=== PATIENT | male | born 1945 | race Caucasian/White ===

== ENCOUNTER 2018-11-27 09:28 | Outpatient (CLI) | payer MEDICARE, SELFPAY | END 2018-11-27 09:48 | PROVIDERS: PCP General Practice; Visit Provider Internal Medicine Hematology & Oncology | DX: D64.9 Anemia, unspecified (principal) | CPT/HCPCS: 36415; 86850; 86900; 86901; 86920; 82728; 83540; 83550; 85025 ==

== ENCOUNTER 2018-11-30 00:59 | Outpatient (RCR) | payer MEDICARE, SELFPAY ==
[2018-11-27] VITALS (9 sets, daily range): BP systolic 130–149; BP diastolic 59–71; PULSE 60–72; RESP 17–18; TEMP 36.3–36.5; O2SAT 96–99
[2018-11-27 10:03] LABS: Abs Immature Grans 0.01 k/cumm (0.0-0.09); Absolute Basophil Count 0.03 k/cumm (0.0-0.2); Absolute Eosinophil Count 0.13 k/cumm (0.0-0.7); Absolute Lymphocyte Count 0.63 k/cumm (1.2-3.4); Absolute Monocyte Count 0.48 k/cumm (0.11-0.7); Absolute Neutrophil Count 3.36 k/cumm (1.2-6.7); Basophils % 0.6; Eosinophils % 2.8; HCT 26.2 % (40.0-50.0); HGB 8.1 g/dL (13.5-17.5); Immature Grans % 0.2; Lymphocytes % 13.6; Mean Corp. HGB Concentration 30.9 g/dL (32.0-36.0); Mean Corpuscular Hemoglobin 28.4 pg (27.0-33.0); Mean Corpuscular Volume 91.9 fL (80-95); Mean Platelet Volume 9.1 fL (8.0-11.0); Monocytes % 10.3; Neutrophils % 72.5; Platelet Count 184 x1000/uL (130-400); RBC 2.85 m/cumm (4.50-6.00); RBC Distribution Width 13.4 % (11.8-14.1); White Blood Cell Count 4.64 k/cumm (4.4-10.8)
[2018-11-27 10:28] LABS: Diff Comment RBC Morph Reviewed
[2018-11-27 10:29] LABS: Basophilic Stippling Present; Hypochromasia 1+; Polychromasia Present
[2018-11-27 11:03] LABS: Iron 31 ug/dL (50-175); Total Iron Binding Capacity 331 ug/dL (250-450); Transferrin Sat 9 % (20-55)
[2018-11-27 11:15] LABS: Ferritin 20 ng/mL (8-388)
[2018-11-27] MEDS: Normal Saline Flush 10 ML SYR IVP (12:00)
[2018-11-30 11:28] LABS: Abs Immature Grans 0.01 k/cumm (0.0-0.09); Absolute Basophil Count 0.02 k/cumm (0.0-0.2); Absolute Eosinophil Count 0.15 k/cumm (0.0-0.7); Absolute Monocyte Count 0.52 k/cumm (0.11-0.7); Absolute Neutrophil Count 3.86 k/cumm (1.2-6.7); Basophils % 0.4; HCT 34.5 % (40.0-50.0); HGB 11.4 g/dL (13.5-17.5); Immature Grans % 0.2; Lymphocytes % 9.9; Mean Corpuscular Hemoglobin 29.2 pg (27.0-33.0); Mean Corpuscular Volume 88.5 fL (80-95); Mean Platelet Volume 9.4 fL (8.0-11.0); Monocytes % 10.3; Neutrophils % 76.2; Platelet Count 155 x1000/uL (130-400); RBC Distribution Width 13.4 % (11.8-14.1); White Blood Cell Count 5.06 k/cumm (4.4-10.8)
== END 2018-12-02 23:59 | disposition home or self-care (01) ==
LOC: INF 00:59
PROVIDERS: PCP General Practice; Visit Provider Internal Medicine Hematology & Oncology
DX: D64.9 Anemia, unspecified (principal)
CPT/HCPCS: 36415; 36430; 86850; 86900; 86901; 86920; 82728; 83540; 83550; 85025; P9016

== ENCOUNTER 2018-12-25 03:08 | Outpatient (RCR) | payer MEDICARE, SELFPAY ==
[2018-12-04 13:37] LABS: Abs Immature Grans 0.02 k/cumm (0.0-0.09); Absolute Basophil Count 0.04 k/cumm (0.0-0.2); Absolute Eosinophil Count 0.06 k/cumm (0.0-0.7); Absolute Lymphocyte Count 0.65 k/cumm (1.2-3.4); Absolute Monocyte Count 0.81 k/cumm (0.11-0.7); Absolute Neutrophil Count 7.17 k/cumm (1.2-6.7); Basophils % 0.5; Eosinophils % 0.7; HCT 36.2 % (40.0-50.0); Immature Grans % 0.2; Lymphocytes % 7.4; Mean Corp. HGB Concentration 33.1 g/dL (32.0-36.0); Mean Corpuscular Hemoglobin 29.3 pg (27.0-33.0); Mean Corpuscular Volume 88.5 fL (80-95); Mean Platelet Volume 9.3 fL (8.0-11.0); Monocytes % 9.3; Neutrophils % 81.9; Platelet Count 188 x1000/uL (130-400); RBC 4.09 m/cumm (4.50-6.00); RBC Distribution Width 13.4 % (11.8-14.1); White Blood Cell Count 8.75 k/cumm (4.4-10.8)
[2018-12-04 15:09] LABS: ALT 55 U/L (12-78); AST 61 U/L (15-37); Albumin 3.1 g/dL (3.4-5.0); Alkaline Phosphatase 51 U/L (46-116); Anion Gap 8.3 mmol/L (3-11); BUN 19 mg/dL (7-18); Bilirubin, Total 0.7 mg/dL (0.2-1.0); CO2 30.7 mmol/L (21.0-32.0); CREATININE 1.51 mg/dL (0.70-1.30); Calcium 8.7 mg/dL (8.5-10.1); Chloride 99 mmol/L (98-107); Estimated GFR 45.52 (mL/min/1.73m2); Glucose 122 mg/dL (70-100); Potassium 3.3 mmol/L (3.5-5.1); Sodium 138 mmol/L (136-145); Total Protein 6.9 g/dL (6.4-8.2)
[2018-12-09 09:32] LABS: Abs Immature Grans 0.05 k/cumm (0.0-0.09); Absolute Basophil Count 0.03 k/cumm (0.0-0.2); Absolute Eosinophil Count 0.21 k/cumm (0.0-0.7); Absolute Lymphocyte Count 0.69 k/cumm (1.2-3.4); Absolute Monocyte Count 0.89 k/cumm (0.11-0.7); Absolute Neutrophil Count 6.01 k/cumm (1.2-6.7); Basophils % 0.4; Eosinophils % 2.7; HCT 37.1 % (40.0-50.0); HGB 12.2 g/dL (13.5-17.5); Immature Grans % 0.6; Lymphocytes % 8.8; Mean Corp. HGB Concentration 32.9 g/dL (32.0-36.0); Mean Corpuscular Hemoglobin 28.7 pg (27.0-33.0); Mean Corpuscular Volume 87.3 fL (80-95); Mean Platelet Volume 9.3 fL (8.0-11.0); Monocytes % 11.3; Neutrophils % 76.2; Platelet Count 299 x1000/uL (130-400); RBC 4.25 m/cumm (4.50-6.00); RBC Distribution Width 13.4 % (11.8-14.1); White Blood Cell Count 7.88 k/cumm (4.4-10.8)
[2018-12-09 10:00] LABS: Iron 27 ug/dL (50-175); Total Iron Binding Capacity 345 ug/dL (250-450); Transferrin Sat 8 % (20-55)
[2018-12-09 10:08] LABS: ALT 63 U/L (12-78); AST 54 U/L (15-37); Albumin 3.1 g/dL (3.4-5.0); Alkaline Phosphatase 64 U/L (46-116); Anion Gap 9.3 mmol/L (3-11); BUN 13 mg/dL (7-18); Bilirubin, Total 0.7 mg/dL (0.2-1.0); CO2 31.7 mmol/L (21.0-32.0); CREATININE 1.63 mg/dL (0.70-1.30); Calcium 8.8 mg/dL (8.5-10.1); Chloride 97 mmol/L (98-107); Estimated GFR 41.68 (mL/min/1.73m2); Ferritin 21 ng/mL (8-388); Glucose 123 mg/dL (70-100); Sodium 138 mmol/L (136-145); Total Protein 7.3 g/dL (6.4-8.2)
[2018-12-09 10:14] LABS: Potassium 2.8 mmol/L (3.5-5.1)
[2018-12-11 11:14] LABS: Chromogranin A 2286 ng/mL (<93)
[2018-12-15 12:47] LABS: Abs Immature Grans 0.07 k/cumm (0.0-0.09); Absolute Basophil Count 0.05 k/cumm (0.0-0.2); Absolute Lymphocyte Count 0.73 k/cumm (1.2-3.4); Absolute Monocyte Count 0.69 k/cumm (0.11-0.7); Basophils % 0.6; Eosinophils % 2.5; HCT 36.9 % (40.0-50.0); HGB 11.8 g/dL (13.5-17.5); Immature Grans % 0.9; Mean Corpuscular Hemoglobin 28.8 pg (27.0-33.0); Mean Platelet Volume 9.1 fL (8.0-11.0); Monocytes % 8.5; Neutrophils % 78.5; Platelet Count 257 x1000/uL (130-400); RBC Distribution Width 14.9 % (11.8-14.1); White Blood Cell Count 8.14 k/cumm (4.4-10.8)
[2018-12-15 14:56] LABS: ALT 53 U/L (12-78); AST 50 U/L (15-37); Albumin 3.1 g/dL (3.4-5.0); Alkaline Phosphatase 62 U/L (46-116); BUN 13 mg/dL (7-18); Bilirubin, Total 0.5 mg/dL (0.2-1.0); CREATININE 1.81 mg/dL (0.70-1.30); Calcium 8.7 mg/dL (8.5-10.1); Chloride 102 mmol/L (98-107); Estimated GFR 36.93 (mL/min/1.73m2); Glucose 129 mg/dL (70-100); Potassium 4.1 mmol/L (3.5-5.1); Sodium 138 mmol/L (136-145); Total Protein 6.5 g/dL (6.4-8.2)
[2018-12-25 08:29] LABS: Abs Immature Grans 0.02 k/cumm (0.0-0.09); Absolute Basophil Count 0.04 k/cumm (0.0-0.2); Absolute Eosinophil Count 0.26 k/cumm (0.0-0.7); Absolute Lymphocyte Count 0.71 k/cumm (1.2-3.4); Absolute Monocyte Count 0.59 k/cumm (0.11-0.7); Absolute Neutrophil Count 4.77 k/cumm (1.2-6.7); Basophils % 0.6; Eosinophils % 4.1; HCT 39.4 % (40.0-50.0); HGB 12.6 g/dL (13.5-17.5); Immature Grans % 0.3; Lymphocytes % 11.1; Mean Corpuscular Hemoglobin 29.2 pg (27.0-33.0); Mean Corpuscular Volume 91.4 fL (80-95); Mean Platelet Volume 9.2 fL (8.0-11.0); Monocytes % 9.2; Neutrophils % 74.7; Platelet Count 186 x1000/uL (130-400); RBC 4.31 m/cumm (4.50-6.00); RBC Distribution Width 17.4 % (11.8-14.1); White Blood Cell Count 6.39 k/cumm (4.4-10.8)
[2018-12-25 08:44] LABS: Iron 81 ug/dL (50-175); Total Iron Binding Capacity 288 ug/dL (250-450); Transferrin Sat 28 % (20-55)
[2018-12-25 08:56] LABS: ALT 41 U/L (12-78); AST 41 U/L (15-37); Albumin 3.1 g/dL (3.4-5.0); Alkaline Phosphatase 66 U/L (46-116); Anion Gap 11.1 mmol/L (3-11); BUN 16 mg/dL (7-18); Bilirubin, Total 0.7 mg/dL (0.2-1.0); CO2 26.9 mmol/L (21.0-32.0); CREATININE 1.45 mg/dL (0.70-1.30); Calcium 8.7 mg/dL (8.5-10.1); Chloride 100 mmol/L (98-107); Estimated GFR 47.71 (mL/min/1.73m2); Ferritin 205 ng/mL (8-388); Glucose 130 mg/dL (70-100); Potassium 3.6 mmol/L (3.5-5.1); Sodium 138 mmol/L (136-145); Total Protein 8.2 g/dL (6.4-8.2)
[2018-12-28 11:38] LABS: Chromogranin A 2372 ng/mL (<93)
== END 2019-01-02 23:59 | disposition home or self-care (01) ==
LOC: INF 03:08
PROVIDERS: PCP General Practice; Visit Provider Internal Medicine Hematology & Oncology
DX: C7A.8 Other malignant neuroendocrine tumors (principal); D64.9 Anemia, unspecified; K92.2 Gastrointestinal hemorrhage, unspecified
CPT/HCPCS: 36415; 80053; 82728; 83540; 83550; 85025; 86316

== ENCOUNTER 2019-01-29 02:14 | Outpatient (RCR) | payer MEDICARE, SELFPAY ==
[2019-01-15 12:52] LABS: Abs Immature Grans 0.02 k/cumm (0.0-0.09); Absolute Basophil Count 0.03 k/cumm (0.0-0.2); Absolute Eosinophil Count 0.27 k/cumm (0.0-0.7); Absolute Lymphocyte Count 0.61 k/cumm (1.2-3.4); Absolute Neutrophil Count 4.65 k/cumm (1.2-6.7); Basophils % 0.5; Eosinophils % 4.4; HCT 39.3 % (40.0-50.0); HGB 12.7 g/dL (13.5-17.5); Immature Grans % 0.3; Lymphocytes % 9.9; Mean Corp. HGB Concentration 32.3 g/dL (32.0-36.0); Mean Corpuscular Hemoglobin 30.3 pg (27.0-33.0); Mean Corpuscular Volume 93.8 fL (80-95); Mean Platelet Volume 8.8 fL (8.0-11.0); Monocytes % 9.7; Neutrophils % 75.2; Platelet Count 188 x1000/uL (130-400); RBC 4.19 m/cumm (4.50-6.00); RBC Distribution Width 19.1 % (11.8-14.1); White Blood Cell Count 6.18 k/cumm (4.4-10.8)
[2019-01-15 13:04] LABS: Anisocytosis 2+; Diff Comment RBC Morph Reviewed; Polychromasia Present
[2019-01-15 13:09] LABS: ALT 51 U/L (16-63); AST 53 U/L (15-37); Albumin 3.2 g/dL (3.4-5.0); Alkaline Phosphatase 65 U/L (46-116); Anion Gap 6.4 mmol/L (3-11); BUN 16 mg/dL (7-18); Bilirubin, Total 0.6 mg/dL (0.2-1.0); CO2 31.6 mmol/L (21.0-32.0); CREATININE 1.32 mg/dL (0.70-1.30); Calcium 8.8 mg/dL (8.5-10.1); Chloride 101 mmol/L (98-107); Estimated GFR 53.17 (mL/min/1.73m2); Glucose 112 mg/dL (70-100); Potassium 3.7 mmol/L (3.5-5.1); Sodium 139 mmol/L (136-145); Total Protein 7.2 g/dL (6.4-8.2)
[2019-01-29 09:13] LABS: Abs Immature Grans 0.01 k/cumm (0.0-0.09); Absolute Basophil Count 0.01 k/cumm (0.0-0.2); Absolute Eosinophil Count 0.26 k/cumm (0.0-0.7); Absolute Lymphocyte Count 0.55 k/cumm (1.2-3.4); Absolute Monocyte Count 0.64 k/cumm (0.11-0.7); Absolute Neutrophil Count 3.27 k/cumm (1.2-6.7); Basophils % 0.2; Eosinophils % 5.5; HCT 39.8 % (40.0-50.0); HGB 13.3 g/dL (13.5-17.5); Immature Grans % 0.2; Lymphocytes % 11.6; Mean Corp. HGB Concentration 33.4 g/dL (32.0-36.0); Mean Corpuscular Hemoglobin 31.7 pg (27.0-33.0); Monocytes % 13.5; Platelet Count 152 x1000/uL (130-400); RBC 4.19 m/cumm (4.50-6.00); RBC Distribution Width 21.5 % (11.8-14.1); White Blood Cell Count 4.74 k/cumm (4.4-10.8)
[2019-01-29 09:21] LABS: Diff Comment RBC Morph Reviewed
[2019-01-29 09:22] LABS: Anisocytosis 2+; Polychromasia Present
[2019-01-29 09:24] LABS: ALT 36 U/L (16-63); AST 36 U/L (15-37); Albumin 3.3 g/dL (3.4-5.0); Alkaline Phosphatase 71 U/L (46-116); Anion Gap 9.1 mmol/L (3-11); BUN 16 mg/dL (7-18); Bilirubin, Total 0.9 mg/dL (0.2-1.0); CO2 26.9 mmol/L (21.0-32.0); CREATININE 1.42 mg/dL (0.70-1.30); Calcium 8.7 mg/dL (8.5-10.1); Chloride 102 mmol/L (98-107); Estimated GFR 48.87 (mL/min/1.73m2); Glucose 123 mg/dL (70-100); Potassium 3.6 mmol/L (3.5-5.1); Sodium 138 mmol/L (136-145); Total Protein 7.2 g/dL (6.4-8.2)
[2019-02-01 11:14] LABS: Chromogranin A 1698 ng/mL (<93)
== END 2019-02-01 23:59 | disposition home or self-care (01) ==
LOC: INF 02:14
PROVIDERS: PCP General Practice; Visit Provider Internal Medicine Hematology & Oncology
DX: C7A.8 Other malignant neuroendocrine tumors (principal)
CPT/HCPCS: 36415; 80053; 85025; 86316

== ENCOUNTER 2019-02-26 02:28 | Outpatient (RCR) | payer MEDICARE, SELFPAY ==
[2019-02-26 09:57] LABS: Abs Immature Grans 0.01 k/cumm (0.0-0.09); Absolute Basophil Count 0.01 k/cumm (0.0-0.2); Absolute Eosinophil Count 0.11 k/cumm (0.0-0.7); Absolute Lymphocyte Count 0.56 k/cumm (1.2-3.4); Absolute Monocyte Count 0.57 k/cumm (0.11-0.7); Basophils % 0.3; Eosinophils % 3.4; HCT 37.2 % (40.0-50.0); HGB 12.7 g/dL (13.5-17.5); Immature Grans % 0.3; Lymphocytes % 17.2; Mean Corp. HGB Concentration 34.1 g/dL (32.0-36.0); Mean Corpuscular Volume 99.7 fL (80-95); Mean Platelet Volume 9.1 fL (8.0-11.0); Monocytes % 17.5; Neutrophils % 61.3; Platelet Count 143 x1000/uL (130-400); RBC 3.73 m/cumm (4.50-6.00); RBC Distribution Width 22.4 % (11.8-14.1); White Blood Cell Count 3.26 k/cumm (4.4-10.8)
[2019-02-26 10:16] LABS: ALT 33 U/L (16-63); AST 30 U/L (15-37); Albumin 3.4 g/dL (3.4-5.0); Alkaline Phosphatase 67 U/L (46-116); Anion Gap 8.5 mmol/L (3-11); BUN 18 mg/dL (7-18); Bilirubin, Total 0.8 mg/dL (0.2-1.0); CO2 28.5 mmol/L (21.0-32.0); CREATININE 1.27 mg/dL (0.70-1.30); Calcium 8.9 mg/dL (8.5-10.1); Chloride 103 mmol/L (98-107); Estimated GFR 55.59 (mL/min/1.73m2); Glucose 102 mg/dL (70-100); Potassium 3.4 mmol/L (3.5-5.1); Sodium 140 mmol/L (136-145); Total Protein 7.1 g/dL (6.4-8.2)
[2019-02-27 13:53] LABS: Chromogranin A 989 ng/mL (<93)
== END 2019-03-04 23:59 | disposition home or self-care (01) ==
LOC: INF 02:28
PROVIDERS: PCP General Practice; Visit Provider Internal Medicine Hematology & Oncology
DX: C7A.8 Other malignant neuroendocrine tumors (principal)
CPT/HCPCS: 36415; 80053; 85025; 86316

== ENCOUNTER 2019-03-26 03:21 | Outpatient (RCR) | payer MEDICARE, SELFPAY ==
[2019-03-26 14:19] LABS: Absolute Eosinophil Count 0.13 k/cumm (0.0-0.7); Absolute Lymphocyte Count 0.56 k/cumm (1.2-3.4); Absolute Neutrophil Count 2.73 k/cumm (1.2-6.7); Eosinophils % 3.2; HCT 35.5 % (40.0-50.0); HGB 12.4 g/dL (13.5-17.5); Lymphocytes % 13.9; Mean Corp. HGB Concentration 34.9 g/dL (32.0-36.0); Mean Corpuscular Hemoglobin 36.4 pg (27.0-33.0); Mean Corpuscular Volume 104.1 fL (80-95); Mean Platelet Volume 8.9 fL (8.0-11.0); Monocytes % 14.9; Platelet Count 142 x1000/uL (130-400); RBC 3.41 m/cumm (4.50-6.00); RBC Distribution Width 19.3 % (11.8-14.1); White Blood Cell Count 4.02 k/cumm (4.4-10.8)
[2019-03-26 14:44] LABS: ALT 36 U/L (16-63); AST 39 U/L (15-37); Albumin 3.8 g/dL (3.4-5.0); Alkaline Phosphatase 57 U/L (46-116); Anion Gap 7.4 mmol/L (3-11); BUN 22 mg/dL (7-18); Bilirubin, Total 1.3 mg/dL (0.2-1.0); CO2 28.6 mmol/L (21.0-32.0); CREATININE 1.26 mg/dL (0.70-1.30); Calcium 8.9 mg/dL (8.5-10.1); Chloride 101 mmol/L (98-107); Glucose 97 mg/dL (74-106); Potassium 3.7 mmol/L (3.5-5.1); Sodium 137 mmol/L (136-145); Total Protein 7.3 g/dL (6.4-8.2)
[2019-03-29 14:02] LABS: Chromogranin A 681 ng/mL (<93)
== END 2019-04-03 23:59 | disposition home or self-care (01) ==
LOC: INF 03:21
PROVIDERS: PCP General Practice; Visit Provider Internal Medicine Hematology & Oncology
DX: C7A.8 Other malignant neuroendocrine tumors (principal)
CPT/HCPCS: 36415; 80053; 85025; 86316

== ENCOUNTER 2019-04-23 04:01 | Outpatient (RCR) | payer MEDICARE, SELFPAY ==
[2019-04-23 12:55] LABS: Abs Immature Grans 0.01 k/cumm (0.0-0.09); Absolute Basophil Count 0.01 k/cumm (0.0-0.2); Absolute Eosinophil Count 0.09 k/cumm (0.0-0.7); Absolute Lymphocyte Count 0.45 k/cumm (1.2-3.4); Absolute Monocyte Count 0.47 k/cumm (0.11-0.7); Absolute Neutrophil Count 2.46 k/cumm (1.2-6.7); Basophils % 0.3; Eosinophils % 2.6; HCT 33.5 % (40.0-50.0); HGB 11.2 g/dL (13.5-17.5); Immature Grans % 0.3; Lymphocytes % 12.9; Mean Corp. HGB Concentration 33.4 g/dL (32.0-36.0); Mean Corpuscular Hemoglobin 37.7 pg (27.0-33.0); Mean Corpuscular Volume 112.8 fL (80-95); Mean Platelet Volume 9.2 fL (8.0-11.0); Monocytes % 13.5; Neutrophils % 70.4; Platelet Count 139 x1000/uL (130-400); RBC 2.97 m/cumm (4.50-6.00); RBC Distribution Width 16.8 % (11.8-14.1); White Blood Cell Count 3.49 k/cumm (4.4-10.8)
[2019-04-23 13:04] LABS: ALT 26 U/L (16-63); AST 37 U/L (15-37); Albumin 3.4 g/dL (3.4-5.0); Alkaline Phosphatase 54 U/L (46-116); Anion Gap 8.2 mmol/L (3-11); BUN 12 mg/dL (7-18); Bilirubin, Total 1.3 mg/dL (0.2-1.0); CO2 29.8 mmol/L (21.0-32.0); Calcium 8.6 mg/dL (8.5-10.1); Chloride 102 mmol/L (98-107); Glucose 151 mg/dL (74-106); Potassium 3.7 mmol/L (3.5-5.1); Sodium 140 mmol/L (136-145)
[2019-04-23 17:17] LABS: Iron 152 ug/dL (65-175); Total Iron Binding Capacity 346 ug/dL (250-450); Transferrin Sat 44 % (20-55)
[2019-04-23 17:30] LABS: Ferritin 173 ng/mL (26-388)
[2019-04-24 11:49] LABS: Chromogranin A 455 ng/mL (<93)
== END 2019-05-04 23:59 | disposition home or self-care (01) ==
LOC: INF 04:01
PROVIDERS: PCP General Practice; Visit Provider Internal Medicine Hematology & Oncology
DX: C7A.8 Other malignant neuroendocrine tumors (principal)
CPT/HCPCS: 36415; 80053; 82728; 83540; 83550; 85025; 86316

== ENCOUNTER 2019-05-21 02:36 | Outpatient (RCR) | payer MEDICARE, SELFPAY ==
[2019-05-21 12:51] LABS: Abs Immature Grans 0.01 k/cumm (0.0-0.09); Absolute Basophil Count 0.01 k/cumm (0.0-0.2); Absolute Eosinophil Count 0.13 k/cumm (0.0-0.7); Absolute Lymphocyte Count 0.47 k/cumm (1.2-3.4); Absolute Monocyte Count 0.46 k/cumm (0.11-0.7); Absolute Neutrophil Count 3.31 k/cumm (1.2-6.7); Basophils % 0.2; HGB 11.6 g/dL (13.5-17.5); Immature Grans % 0.2 %; Lymphocytes % 10.7; Mean Corp. HGB Concentration 34.1 g/dL (32.0-36.0); Mean Corpuscular Hemoglobin 38.9 pg (27.0-33.0); Mean Corpuscular Volume 114.1 fL (80-95); Mean Platelet Volume 9.7 fL (8.0-11.0); Monocytes % 10.5; Neutrophils % 75.4; Platelet Count 139 x1000/uL (130-400); RBC 2.98 m/cumm (4.50-6.00); RBC Distribution Width 15.4 % (11.8-14.1); White Blood Cell Count 4.39 k/cumm (4.4-10.8)
[2019-05-21 13:01] LABS: ALT 30 U/L (16-63); AST 50 U/L (15-37); Albumin 3.6 g/dL (3.4-5.0); Alkaline Phosphatase 52 U/L (46-116); Anion Gap 8.2 mmol/L (3-11); BUN 18 mg/dL (7-18); Bilirubin, Total 1.5 mg/dL (0.2-1.0); CO2 27.8 mmol/L (21.0-32.0); CREATININE 1.46 mg/dL (0.70-1.30); Calcium 9.1 mg/dL (8.5-10.1); Chloride 102 mmol/L (98-107); Glucose 173 mg/dL (74-106); Potassium 4.2 mmol/L (3.5-5.1); Sodium 138 mmol/L (136-145)
[2019-05-24 14:30] LABS: Chromogranin A 643 ng/mL (<93)
== END 2019-06-04 23:59 | disposition home or self-care (01) ==
LOC: INF 02:36
PROVIDERS: PCP General Practice; Visit Provider Internal Medicine Hematology & Oncology
DX: C7A.8 Other malignant neuroendocrine tumors (principal)
CPT/HCPCS: 36415; 80053; 85025; 86316

== ENCOUNTER 2019-06-25 02:56 | Outpatient (RCR) | payer MEDICARE, SELFPAY ==
[2019-06-25 09:21] LABS: Abs Immature Grans 0.01 k/cumm (0.0-0.09); Absolute Basophil Count 0.02 k/cumm (0.0-0.2); Absolute Eosinophil Count 0.08 k/cumm (0.0-0.7); Absolute Lymphocyte Count 0.42 k/cumm (1.2-3.4); Absolute Monocyte Count 0.39 k/cumm (0.11-0.7); Absolute Neutrophil Count 2.36 k/cumm (1.2-6.7); Basophils % 0.6; Eosinophils % 2.4; HCT 34.5 % (40.0-50.0); Immature Grans % 0.3 %; Lymphocytes % 12.8; Mean Corp. HGB Concentration 34.8 g/dL (32.0-36.0); Mean Corpuscular Hemoglobin 39.1 pg (27.0-33.0); Mean Corpuscular Volume 112.4 fL (80-95); Mean Platelet Volume 9.7 fL (8.0-11.0); Monocytes % 11.9; Platelet Count 121 x1000/uL (130-400); RBC 3.07 m/cumm (4.50-6.00); RBC Distribution Width 14.2 % (11.8-14.1); White Blood Cell Count 3.28 k/cumm (4.4-10.8)
[2019-06-25 09:37] LABS: ALT 50 U/L (16-63); AST 100 U/L (15-37); Albumin 3.6 g/dL (3.4-5.0); Alkaline Phosphatase 71 U/L (46-116); Anion Gap 10.1 mmol/L (3-11); BUN 22 mg/dL (7-18); CO2 26.9 mmol/L (21.0-32.0); CREATININE 1.47 mg/dL (0.70-1.30); Calcium 8.9 mg/dL (8.5-10.1); Chloride 102 mmol/L (98-107); Estimated GFR 46.83 (mL/min/1.73m2); Glucose 124 mg/dL (74-106); Potassium 3.7 mmol/L (3.5-5.1); Sodium 139 mmol/L (136-145); Total Protein 7.4 g/dL (6.4-8.2)
[2019-06-26 16:28] LABS: Chromogranin A 896 ng/mL (<93)
== END 2019-07-03 23:59 | disposition home or self-care (01) ==
LOC: INF 02:56
PROVIDERS: PCP General Practice; Visit Provider Internal Medicine Hematology & Oncology
DX: C7A.8 Other malignant neuroendocrine tumors (principal); Z45.2 Encounter for adjustment and management of vascular access device
CPT/HCPCS: 36415; 80053; 85025; 86316

== ENCOUNTER 2019-07-23 03:21 | Outpatient (RCR) | payer MEDICARE, SELFPAY ==
[2019-07-23 09:11] LABS: Abs Immature Grans 0.01 k/cumm (0.0-0.09); Absolute Basophil Count 0.01 k/cumm (0.0-0.2); Absolute Eosinophil Count 0.13 k/cumm (0.0-0.7); Absolute Lymphocyte Count 0.61 k/cumm (1.2-3.4); Absolute Monocyte Count 0.59 k/cumm (0.11-0.7); Basophils % 0.2; Eosinophils % 2.9; HCT 34.9 % (40.0-50.0); HGB 11.9 g/dL (13.5-17.5); Immature Grans % 0.2 %; Lymphocytes % 13.4; Mean Corp. HGB Concentration 34.1 g/dL (32.0-36.0); Mean Corpuscular Hemoglobin 37.4 pg (27.0-33.0); Mean Corpuscular Volume 109.7 fL (80-95); Mean Platelet Volume 9.7 fL (8.0-11.0); Neutrophils % 70.3; Platelet Count 129 x1000/uL (130-400); RBC 3.18 m/cumm (4.50-6.00); RBC Distribution Width 12.9 % (11.8-14.1); White Blood Cell Count 4.55 k/cumm (4.4-10.8)
[2019-07-23 09:29] LABS: ALT 53 U/L (16-63); AST 160 U/L (15-37); Albumin 3.4 g/dL (3.4-5.0); Alkaline Phosphatase 93 U/L (46-116); Anion Gap 8.6 mmol/L (3-11); BUN 17 mg/dL (7-18); CO2 27.4 mmol/L (21.0-32.0); CREATININE 1.32 mg/dL (0.70-1.30); Calcium 8.6 mg/dL (8.5-10.1); Chloride 102 mmol/L (98-107); Estimated GFR 53.02 (mL/min/1.73m2); Glucose 141 mg/dL (74-106); Potassium 4.3 mmol/L (3.5-5.1); Sodium 138 mmol/L (136-145); Total Protein 7.3 g/dL (6.4-8.2)
== END 2019-08-03 23:59 | disposition home or self-care (01) ==
LOC: INF 03:21
PROVIDERS: PCP General Practice; Visit Provider Internal Medicine Hematology & Oncology
DX: C7A.8 Other malignant neuroendocrine tumors (principal)
CPT/HCPCS: 36415; 80053; 85025

== ENCOUNTER 2019-08-27 04:10 | Outpatient (RCR) | payer MEDICARE, SELFPAY ==
[2019-08-27 13:00] LABS: Abs Immature Grans 0.02 k/cumm (0.0-0.09); Absolute Basophil Count 0.02 k/cumm (0.0-0.2); Absolute Eosinophil Count 0.07 k/cumm (0.0-0.7); Absolute Lymphocyte Count 0.48 k/cumm (1.2-3.4); Absolute Monocyte Count 0.54 k/cumm (0.11-0.7); Absolute Neutrophil Count 4.16 k/cumm (1.2-6.7); Basophils % 0.4; Eosinophils % 1.3; HCT 36.2 % (40.0-50.0); HGB 12.4 g/dL (13.5-17.5); Immature Grans % 0.4 %; Lymphocytes % 9.1; Mean Corp. HGB Concentration 34.3 g/dL (32.0-36.0); Mean Corpuscular Volume 105.2 fL (80-95); Mean Platelet Volume 11.2 fL (8.0-11.0); Monocytes % 10.2; Neutrophils % 78.6; RBC 3.44 m/cumm (4.50-6.00); RBC Distribution Width 12.8 % (11.8-14.1); White Blood Cell Count 5.29 k/cumm (4.4-10.8)
[2019-08-27 13:18] LABS: Iron 80 ug/dL (65-175); Total Iron Binding Capacity 225 ug/dL (250-450); Transferrin Sat 36 % (20-55)
[2019-08-27 13:19] LABS: Platelet Count 73 x1000/uL (130-400)
[2019-08-27 13:20] LABS: Macrocytosis 1+
[2019-08-27 13:27] LABS: ALT 55 U/L (16-63); AST 210 U/L (15-37); Albumin 3.2 g/dL (3.4-5.0); Alkaline Phosphatase 114 U/L (46-116); Anion Gap 9.3 mmol/L (3-11); BUN 18 mg/dL (7-18); Bilirubin, Total 0.9 mg/dL (0.2-1.0); CO2 26.7 mmol/L (21.0-32.0); CREATININE 1.56 mg/dL (0.70-1.30); Calcium 8.7 mg/dL (8.5-10.1); Chloride 98 mmol/L (98-107); Estimated GFR 43.72 (mL/min/1.73m2); Ferritin 556 ng/mL (26-388); Glucose 208 mg/dL (74-106); Potassium 3.8 mmol/L (3.5-5.1); Sodium 134 mmol/L (136-145); Total Protein 7.4 g/dL (6.4-8.2)
[2019-08-27 15:37] LABS: TSH 3.24 uIU/mL (0.36-3.74)
[2019-08-30 22:25] LABS: Chromogranin A 2479 ng/mL (<93)
== END 2019-09-02 23:59 | disposition home or self-care (01) ==
LOC: INF 04:10
PROVIDERS: PCP General Practice; Visit Provider Internal Medicine Hematology & Oncology
DX: C7A.8 Other malignant neuroendocrine tumors (principal); R53.83 Other fatigue
CPT/HCPCS: 36415; 80053; 82728; 83540; 83550; 84443; 85025; 86316

== ENCOUNTER 2019-09-21 06:56 | Outpatient (RCR) | payer MEDICARE, SELFPAY ==
[2019-09-21 10:13] LABS: Abs Immature Grans 0.03 k/cumm (0.0-0.09); Absolute Basophil Count 0.02 k/cumm (0.0-0.2); Absolute Eosinophil Count 0.04 k/cumm (0.0-0.7); Absolute Lymphocyte Count 0.59 k/cumm (1.2-3.4); Absolute Monocyte Count 0.66 k/cumm (0.11-0.7); Absolute Neutrophil Count 2.89 k/cumm (1.2-6.7); Basophils % 0.5; Eosinophils % 0.9; HCT 34.4 % (40.0-50.0); HGB 11.6 g/dL (13.5-17.5); Immature Grans % 0.7 %; Lymphocytes % 13.9; Mean Corp. HGB Concentration 33.7 g/dL (32.0-36.0); Mean Corpuscular Hemoglobin 34.7 pg (27.0-33.0); Mean Platelet Volume 10.5 fL (8.0-11.0); Monocytes % 15.6; Neutrophils % 68.4; RBC 3.34 m/cumm (4.50-6.00); White Blood Cell Count 4.23 k/cumm (4.4-10.8)
[2019-09-21 10:27] LABS: ALT 57 U/L (16-63); AST 332 U/L (15-37); Albumin 3.1 g/dL (3.4-5.0); Alkaline Phosphatase 129 U/L (46-116); Anion Gap 7.3 mmol/L (3-11); BUN 14 mg/dL (7-18); Bilirubin, Total 1.1 mg/dL (0.2-1.0); CO2 27.7 mmol/L (21.0-32.0); CREATININE 1.47 mg/dL (0.70-1.30); Calcium 9.7 mg/dL (8.5-10.1); Chloride 97 mmol/L (98-107); Estimated GFR 46.83 (mL/min/1.73m2); Glucose 151 mg/dL (74-106); Potassium 4.3 mmol/L (3.5-5.1); Sodium 132 mmol/L (136-145); Total Protein 7.1 g/dL (6.4-8.2)
[2019-09-21 10:33] LABS: Platelet Count 85 x1000/uL (130-400)
== END 2019-09-28 15:00 ==
LOC: INF 06:56
PROVIDERS: PCP General Practice; Visit Provider Internal Medicine Hematology & Oncology
DX: C7A.8 Other malignant neuroendocrine tumors (principal)
CPT/HCPCS: 36415; 80053; 85025

== ENCOUNTER 2019-10-01 02:55 | Outpatient (RCR) | payer MEDICARE, SELFPAY ==
[2019-09-17 13:00] LABS: Abs Immature Grans 0.02 k/cumm (0.0-0.09); Absolute Basophil Count 0.01 k/cumm (0.0-0.2); Absolute Eosinophil Count 0.05 k/cumm (0.0-0.7); Absolute Lymphocyte Count 0.47 k/cumm (1.2-3.4); Absolute Monocyte Count 0.68 k/cumm (0.11-0.7); Absolute Neutrophil Count 3.21 k/cumm (1.2-6.7); Basophils % 0.2; Eosinophils % 1.1; HCT 35.2 % (40.0-50.0); Immature Grans % 0.5 %; Lymphocytes % 10.6; Mean Corp. HGB Concentration 34.1 g/dL (32.0-36.0); Mean Corpuscular Hemoglobin 34.9 pg (27.0-33.0); Mean Corpuscular Volume 102.3 fL (80-95); Mean Platelet Volume 10.9 fL (8.0-11.0); Monocytes % 15.3; Neutrophils % 72.3; RBC 3.44 m/cumm (4.50-6.00); RBC Distribution Width 13.5 % (11.8-14.1); White Blood Cell Count 4.44 k/cumm (4.4-10.8)
[2019-09-17 13:13] LABS: ALT 58 U/L (16-63); AST 295 U/L (15-37); Albumin 3.2 g/dL (3.4-5.0); Alkaline Phosphatase 127 U/L (46-116); Anion Gap 8.9 mmol/L (3-11); BUN 18 mg/dL (7-18); Bilirubin, Total 1.1 mg/dL (0.2-1.0); CO2 26.1 mmol/L (21.0-32.0); CREATININE 1.52 mg/dL (0.70-1.30); Calcium 9.1 mg/dL (8.5-10.1); Chloride 95 mmol/L (98-107); Estimated GFR 45.05 (mL/min/1.73m2); Glucose 148 mg/dL (74-106); Sodium 130 mmol/L (136-145); Total Protein 7.4 g/dL (6.4-8.2)
[2019-09-17 13:41] LABS: Platelet Count 84 x1000/uL (130-400)
[2019-09-21 10:19] LABS: Chromogranin A 4098 ng/mL (<93)
[2019-10-01 12:59] LABS: Abs Immature Grans 0.09 k/cumm (0.0-0.09); Absolute Basophil Count 0.01 k/cumm (0.0-0.2); Absolute Eosinophil Count 0.02 k/cumm (0.0-0.7); Absolute Lymphocyte Count 0.29 k/cumm (1.2-3.4); Absolute Monocyte Count 0.62 k/cumm (0.11-0.7); Absolute Neutrophil Count 2.88 k/cumm (1.2-6.7); Basophils % 0.3; Eosinophils % 0.5; HCT 31.1 % (40.0-50.0); HGB 10.6 g/dL (13.5-17.5); Immature Grans % 2.3 %; Lymphocytes % 7.4; Mean Corp. HGB Concentration 34.1 g/dL (32.0-36.0); Mean Corpuscular Hemoglobin 34.8 pg (27.0-33.0); Mean Platelet Volume 10.7 fL (8.0-11.0); Monocytes % 15.9; Neutrophils % 73.6; RBC 3.05 m/cumm (4.50-6.00); RBC Distribution Width 14.5 % (11.8-14.1); White Blood Cell Count 3.91 k/cumm (4.4-10.8)
[2019-10-01 13:16] LABS: ALT 57 U/L (16-63); AST 280 U/L (15-37); Albumin 2.5 g/dL (3.4-5.0); Alkaline Phosphatase 134 U/L (46-116); Anion Gap 10.4 mmol/L (3-11); BUN 16 mg/dL (7-18); CO2 25.6 mmol/L (21.0-32.0); CREATININE 1.36 mg/dL (0.70-1.30); Calcium 8.6 mg/dL (8.5-10.1); Chloride 97 mmol/L (98-107); Estimated GFR 51.22 (mL/min/1.73m2); Glucose 243 mg/dL (74-106); Platelet Count 88 x1000/uL (130-400); Potassium 3.8 mmol/L (3.5-5.1); Sodium 133 mmol/L (136-145); Total Protein 6.5 g/dL (6.4-8.2)
[2019-10-01 15:24] LABS: Magnesium 1.8 mg/dL (1.8-2.4)
== END 2019-10-03 23:59 | disposition home or self-care (01) ==
LOC: INF 02:55
PROVIDERS: PCP General Practice; Visit Provider Internal Medicine Hematology & Oncology
DX: C7A.8 Other malignant neuroendocrine tumors (principal); Z45.2 Encounter for adjustment and management of vascular access device
CPT/HCPCS: 36415; 80053; 83735; 85025; 86316

== ENCOUNTER 2019-10-22 04:38 | Outpatient (RCR) | payer MEDICARE, SELFPAY ==
[2019-10-08 13:43] LABS: Abs Immature Grans 0.05 k/cumm (0.0-0.09); Absolute Basophil Count 0.02 k/cumm (0.0-0.2); Absolute Eosinophil Count 0.02 k/cumm (0.0-0.7); Absolute Monocyte Count 0.65 k/cumm (0.11-0.7); Basophils % 0.3; Eosinophils % 0.3; HGB 11.5 g/dL (13.5-17.5); Immature Grans % 0.7 %; Lymphocytes % 7.4; Mean Corp. HGB Concentration 33.8 g/dL (32.0-36.0); Mean Corpuscular Hemoglobin 34.7 pg (27.0-33.0); Mean Corpuscular Volume 102.7 fL (80-95); Mean Platelet Volume 11.1 fL (8.0-11.0); Monocytes % 9.6; Neutrophils % 81.7; Platelet Count 102 x1000/uL (130-400); RBC 3.31 m/cumm (4.50-6.00); RBC Distribution Width 15.2 % (11.8-14.1); White Blood Cell Count 6.74 k/cumm (4.4-10.8)
[2019-10-08 13:58] LABS: ALT 52 U/L (16-63); AST 209 U/L (15-37); Albumin 3.1 g/dL (3.4-5.0); Alkaline Phosphatase 143 U/L (46-116); Anion Gap 10.2 mmol/L (3-11); BUN 15 mg/dL (7-18); Bilirubin, Total 1.1 mg/dL (0.2-1.0); CO2 25.8 mmol/L (21.0-32.0); CREATININE 1.41 mg/dL (0.70-1.30); Chloride 96 mmol/L (98-107); Estimated GFR 49.13 (mL/min/1.73m2); Glucose 173 mg/dL (74-106); Magnesium 1.5 mg/dL (1.8-2.4); Potassium 4.1 mmol/L (3.5-5.1); Sodium 132 mmol/L (136-145); Total Protein 7.2 g/dL (6.4-8.2)
[2019-10-08] MEDS: Normal Saline Flush 10 ML SYR IVP (14:05)
[2019-10-15] MEDS: Normal Saline Flush 10 ML SYR IVP (11:15)
[2019-10-15 11:17] LABS: Abs Immature Grans 0.03 k/cumm (0.0-0.09); Absolute Basophil Count 0.01 k/cumm (0.0-0.2); Absolute Eosinophil Count 0.05 k/cumm (0.0-0.7); Absolute Lymphocyte Count 0.26 k/cumm (1.2-3.4); Absolute Monocyte Count 0.76 k/cumm (0.11-0.7); Basophils % 0.2; Eosinophils % 1.2; HCT 33.7 % (40.0-50.0); HGB 11.5 g/dL (13.5-17.5); Immature Grans % 0.7 %; Lymphocytes % 6.4; Mean Corp. HGB Concentration 34.1 g/dL (32.0-36.0); Mean Corpuscular Hemoglobin 35.3 pg (27.0-33.0); Mean Corpuscular Volume 103.4 fL (80-95); Mean Platelet Volume 11.5 fL (8.0-11.0); Monocytes % 18.7; Neutrophils % 72.8; Platelet Count 101 x1000/uL (130-400); RBC 3.26 m/cumm (4.50-6.00); RBC Distribution Width 15.5 % (11.8-14.1); White Blood Cell Count 4.06 k/cumm (4.4-10.8)
[2019-10-15 11:18] LABS: Absolute Neutrophil Count 2.96 k/cumm (1.2-6.7)
[2019-10-15 11:25] LABS: ALT 49 U/L (16-63); AST 219 U/L (15-37); Albumin 3.1 g/dL (3.4-5.0); Alkaline Phosphatase 144 U/L (46-116); Anion Gap 10.5 mmol/L (3-11); BUN 16 mg/dL (7-18); CO2 26.5 mmol/L (21.0-32.0); CREATININE 1.64 mg/dL (0.70-1.30); Calcium 8.8 mg/dL (8.5-10.1); Chloride 97 mmol/L (98-107); Estimated GFR 41.27 (mL/min/1.73m2); Glucose 185 mg/dL (74-106); Potassium 3.8 mmol/L (3.5-5.1); Sodium 134 mmol/L (136-145); Total Protein 7.3 g/dL (6.4-8.2)
[2019-10-22 07:48] LABS: Abs Immature Grans 0.02 k/cumm (0.0-0.09); Absolute Basophil Count 0.01 k/cumm (0.0-0.2); Absolute Eosinophil Count 0.03 k/cumm (0.0-0.7); Absolute Lymphocyte Count 0.48 k/cumm (1.2-3.4); Absolute Monocyte Count 0.68 k/cumm (0.11-0.7); Absolute Neutrophil Count 2.99 k/cumm (1.2-6.7); Basophils % 0.2; Eosinophils % 0.7; HCT 32.4 % (40.0-50.0); HGB 10.7 g/dL (13.5-17.5); Immature Grans % 0.5 %; Lymphocytes % 11.4; Mean Corpuscular Hemoglobin 34.6 pg (27.0-33.0); Mean Corpuscular Volume 104.9 fL (80-95); Mean Platelet Volume 11.7 fL (8.0-11.0); Monocytes % 16.2; RBC 3.09 m/cumm (4.50-6.00); RBC Distribution Width 16.1 % (11.8-14.1); White Blood Cell Count 4.21 k/cumm (4.4-10.8)
[2019-10-22] MEDS: Normal Saline Flush 10 ML SYR IVP (08:00)
[2019-10-22 08:09] LABS: Platelet Count 68 x1000/uL (130-400)
[2019-10-22 08:12] LABS: Diff Comment PLT Morph Reviewed; Macrocytosis 2+; Polychromasia Present
[2019-10-22 08:15] LABS: ALT 47 U/L (16-63); AST 254 U/L (15-37); Albumin 2.9 g/dL (3.4-5.0); Alkaline Phosphatase 148 U/L (46-116); BUN 12 mg/dL (7-18); Bilirubin, Total 1.1 mg/dL (0.2-1.0); CREATININE 1.45 mg/dL (0.70-1.30); Calcium 8.8 mg/dL (8.5-10.1); Chloride 99 mmol/L (98-107); Estimated GFR 47.57 (mL/min/1.73m2); Glucose 144 mg/dL (74-106); Magnesium 1.5 mg/dL (1.8-2.4); Potassium 3.5 mmol/L (3.5-5.1); Sodium 136 mmol/L (136-145); Total Protein 6.8 g/dL (6.4-8.2)
[2019-10-25 10:04] LABS: Chromogranin A 6767 ng/mL (<93)
== END 2019-11-02 23:59 | disposition home or self-care (01) ==
LOC: INF 04:38
PROVIDERS: PCP General Practice; Visit Provider Internal Medicine Hematology & Oncology
DX: C7A.8 Other malignant neuroendocrine tumors (principal); E83.42 Hypomagnesemia
CPT/HCPCS: 36415; 80053; 83735; 85025; 86316

== ENCOUNTER 2019-11-04 01:32 | Outpatient (RCR) | payer MEDICARE, SELFPAY ==
[2019-11-04 12:54] LABS: Abs Immature Grans 0.02 k/cumm (0.0-0.09); Absolute Basophil Count 0.01 k/cumm (0.0-0.2); Absolute Eosinophil Count 0.05 k/cumm (0.0-0.7); Absolute Lymphocyte Count 0.46 k/cumm (1.2-3.4); Absolute Monocyte Count 0.45 k/cumm (0.11-0.7); Absolute Neutrophil Count 3.33 k/cumm (1.2-6.7); Basophils % 0.2; Eosinophils % 1.2; HCT 33.1 % (40.0-50.0); HGB 10.9 g/dL (13.5-17.5); Immature Grans % 0.5 %; Lymphocytes % 10.6; Mean Corp. HGB Concentration 32.9 g/dL (32.0-36.0); Mean Corpuscular Hemoglobin 34.8 pg (27.0-33.0); Mean Corpuscular Volume 105.8 fL (80-95); Monocytes % 10.4; Neutrophils % 77.1; RBC 3.13 m/cumm (4.50-6.00); RBC Distribution Width 17.8 % (11.8-14.1); White Blood Cell Count 4.32 k/cumm (4.4-10.8)
[2019-11-04 13:06] LABS: ALT 61 U/L (16-63); AST 491 U/L (15-37); Albumin 2.8 g/dL (3.4-5.0); Alkaline Phosphatase 179 U/L (46-116); Anion Gap 12.6 mmol/L (3-11); BUN 10 mg/dL (7-18); Bilirubin, Total 1.4 mg/dL (0.2-1.0); CO2 24.4 mmol/L (21.0-32.0); CREATININE 1.65 mg/dL (0.70-1.30); Calcium 8.9 mg/dL (8.5-10.1); Chloride 97 mmol/L (98-107); Estimated GFR 40.98 (mL/min/1.73m2); Glucose 176 mg/dL (74-106); Sodium 134 mmol/L (136-145); Total Protein 6.5 g/dL (6.4-8.2)
[2019-11-04 13:13] LABS: Diff Comment Diff Reviewed; Macrocytosis 1+; Platelet Count 52 x1000/uL (130-400)
[2019-11-04 13:14] LABS: Poikilocytes 2+; Polychromasia Present
[2019-11-08 10:41] LABS: Chromogranin A 8552 ng/mL (<93)
== END 2019-11-11 23:59 | disposition home or self-care (01) ==
LOC: INF 01:32
PROVIDERS: PCP General Practice; Visit Provider Internal Medicine Hematology & Oncology
DX: C7A.8 Other malignant neuroendocrine tumors (principal)
CPT/HCPCS: 36591; 80053; 85025; 86316